=== PATIENT | male | born 1940 | race Caucasian/White ===

== ENCOUNTER 2018-01-16 07:31 | Observation (INO) | payer MEDICARE ==
[~2018-01-16] VITALS: Ht 172.7 cm; Wt 74.1 kg
[~2018-01-16 07:31] MED LIST: AMLODIPINE BESY10 MG PO; BENICAR HCT 401 EAC1 PO; GLIPIZIDE ER5 MG PO; SIMVASTATIN40 MG PO
--- OUTSIDE RECORDS SUMMARY | 2018-01-16 07:33 | XMS REPORT | Clinical Summary ---
Author Author [facility] Organization [facility] Address Unknown Phone Unavailable Care Team Providers Care Alligator Trapper Name Role Phone Gibson Nagy MD PCP Allergies No Known Allergies Medications End Date Status Medication Sig Dispensed Refills Start Date Active albuterol (ACCUNEB) 1.25 U 3 ML VIA 0 mg/3 mL nebulizer NEB TID FOR 8 solution 10 DAYS PRN Active amLODIPine (NORVASC) 10 0 mg tablet 8 Active RESTASIS 0.05 % INT 1 GTT IN 0 ophthalmic emulsion OU BID 8 Active glipiZIDE (GLUCOTROL) 10 0 MG tablet 8 Active ipratropium (ATROVENT) VVN TID 0 0.02 % nebulizer solution 8 Active levoFLOXacin (LEVAQUIN) TK 1 T PO QD 0 500 MG tablet FOR 10 DAYS 8 Active simvastatin (ZOCOR) 20 MG 0 tablet 8 Active predniSONE (DELTASONE) 20 TK 1 T PO QAM 0 mg tablet FOR 5 DAYS 8 Active olmesartan-hydrochlorothi 0 azide (BENICAR HCT) 40-25 8 mg per tablet Active metroNIDAZOLE APPLY BID PRN 3 (METROCREAM) 0.75 % 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 ON 8 FACE Active Problems Not on file Encounters Care Team Description Date Type Specialty Gibson aMbry MD Urinary retention (Primary Dx) 01/10/2018 Emergency Emergency Medicine Niraj Diggs Preoperative clearance (Primary Dx) 01/08/2018 Orders Only Procedural Cardiology Tam John MD Urinary retention (Primary Dx) 12/30/2017 Emergency Emergency Medicine Bassam Lopez MD 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 Never 01/10/2018 How many drinks containing alcohol do you have on Not asked a typical day when you are drinking? How often do you have six or more drinks on one Not asked occasion? Sex Assigned at Date Recorded Not on file Industry Job Start Date Occupation Not on file Not on file Not on file Travel End Travel History Travel Start No recent travel history available. Last Filed Vital Signs Time Taken Vital Sign Reading 01/10/2018 7:16 PM FRAMER Blood Pressure 117/57 01/10/2018 7:16 PM FRAMER Pulse 66 01/10/2018 7:16 PM FRAMER Temperature 36.7 C (98.1 F) 01/10/2018 7:16 PM FRAMER Respiratory Rate 15 01/10/2018 7:16 PM FRAMER Oxygen Saturation 97% - Inhaled Oxygen - Concentration 01/10/2018 6:11 PM FRAMER Weight 77.1 kg (170 lb) 12/30/2017 3:42 AM FRAMER Height 172.7 cm (5' 8") 01/10/2018 6:11 PM FRAMER Body Mass Index 25.85 Plan of Treatment Care Team Description Date Type Specialty Bassam Lopez MD [address] [place] [id number] [phone] 02/21/2018 Pre-Admit Pre-Admission Testing Testing Appointment Bassam Lopez MD [address] [place] [address] [address] [place], [place] [id number] 02/26/2018 [facility] General Surgery Encounter Bassam Lopez MD [address] [place] [address] [address] [place], [place] [address] Cystoscopy, With Turp 02/26/2018 Surgery General Surgery Health Maintenance Due Date Last Done Comments SHINGRIX VACCINE (1 of 2) 1990 ZOSTER VACCINE 2000 PNEUMOCOCCAL 2005 POLYSACCHARIDE VACCINE AGE 65 AND OVER PNEUMOCOCCAL-13 2005 INFLUENZA VACCINE 09/12/2017 Procedures Comments Procedure Name Priority Date/Time Associated Diagnosis ECG 12-LEAD Routine 01/07/2018 Preoperative clearance 4:28 PM FRAMER CHG US, ABDOMEN LIMITED Routine 12/30/2017 4:[address] RENAL STONE PROTOCOL STAT 12/30/2017 4:13 AM FRAMER ESTIMATED GFR STAT 12/30/2017 3:58 AM FRAMER LIPASE LEVEL STAT 12/30/2017 3:58 AM FRAMER COMPREHENSIVE METABOLIC STAT 12/30/2017 PANEL 3:58 AM FRAMER HC COMPLETE BLD COUNT STAT 12/30/2017 W/AUTO DIFF 3:58 AM FRAMER URINALYSIS SCREEN AND STAT 12/30/2017 MICROSCOPY, WITH REFLEX 3:40 AM FRAMER TO CULTURE URINE CULTURE STAT 12/30/2017 3:[address] ABDOMEN PELVIS W Routine 12/06/2017 Hematuria syndrome CONTRAST 2:13 PM CDT ESTIMATED GFR Routine 12/06/2017 1:56 PM CDT POC CREATININE Routine 12/06/2017 1:[address] ABDOMEN PELVIS W Routine 05/10/2017 Hematuria syndrome CONTRAST 8:20 AM CDT POC CREATININE Routine 05/10/2017 7:58 AM CDT after 01/15/2017 Results * ECG 12 lead (01/07/2018 4:28 PM FRAMER) Ventricular rate 71 [facility] Atrial rate 71 [facility] [place] interval 164 [facility] QRSD interval 98 [facility] QT interval 386 [facility] QTC interval 419 [facility] P axis 1 53 [facility] QRS axis 1 15 [facility] T wave axis 39 [facility] EKG impression Normal sinus rhythm-Possible [facility] MUSE Left atrial enlargement-Borderline ECG-In automated comparison with ECG of 13-APR-2016 09:09,-Nonspecific T wave abnormality has replaced inverted T waves in Inferior leads- Narrative Performed At Performing Organization Address City/State/Zipcode Phone Number [facility] MUSE [address] [place] [address] * FAST Ultrasound (12/30/2017 4:38 AM FRAMER) Narrative Performed At Tam John MD 12/31/20178:26 PM FAST Ultrasound Performed by: Tam John MD Authorized by: Tam John MD Procedure details: Technique:Abdominal Abdominal findings: Bladder:Visualized (bladder distension noted) * CT Renal Stone Protocol (12/30/2017 4:13 AM FRAMER) Narrative Performed At CT RENAL STONE PROTOCOL RADIANT CLINICAL INDICATION:Flank painrecurrent stone disease suspected TECHNIQUE: Multidetector CT examination of the abdomen and pelvis performed without intravenous contrast per renal stone protocol. CT imaging was performed with iterative reconstruction technique and/or automated exposure control to reduce radiation dose. COMPARISON:12/06/2017. FINDINGS: Note, the lack of intravenous contrast decreases sensitivity of this exam and limits evaluation of the abdominal and pelvic viscera. URINARY TRACT:There is no urinary tract calculus or hydronephrosis. No suspicious renal mass is identified. LUNG BASES:There are small nodular opacities at the right lung base, likely representing mild pneumonitis. There is mild bibasilar atelectasis. LIVER:Normal. BILIARY:There is cholelithiasis without evidence of acute cholecystitis. There is no abnormal biliary ductal dilation. SPLEEN:Normal. PANCREAS:Normal. ADRENALS:Normal. GI:Large and small bowel are normal in caliber.There are no inflammatory changes.Appendix is visualized and appears normal. There is sigmoid colon diverticulosis. VASCULAR:There is calcified atherosclerotic disease of the abdominal aorta and iliac arteries. The abdominal aorta is normal in caliber. LYMPH NODES:No enlarged lymph nodes in the abdomen or pelvis. PELVIS:The urinary bladder is distended. The prostate gland is mildly large. BONES:No acute osseous abnormality. OTHER:There is no ascites or pneumoperitoneum. IMPRESSION: 1. No urinary tract calculus or hydronephrosis. 2. Distended urinary bladder. If the patient cannot void, consider catheterization. 3. Mild prostatomegaly. 4. Cholelithiasis. [facility]-[id number] Procedure Note Hm Interface, Radiology Results Incoming - 12/30/2017 5:[address] RENAL STONE PROTOCOL CLINICAL INDICATION: Flank pain recurrent stone disease suspected TECHNIQUE: Multidetector CT examination of the abdomen and pelvis performed without intravenous contrast per renal stone protocol. CT imaging was performed with iterative reconstruction technique and/or automated exposure control to reduce radiation dose. COMPARISON: 12/06/2017. FINDINGS: Note, the lack of intravenous contrast decreases sensitivity of this exam and limits evaluation of the abdominal and pelvic viscera. URINARY TRACT: There is no urinary tract calculus or hydronephrosis. No suspicious renal mass is identified. LUNG BASES: There are small nodular opacities at the right lung base, likely representing mild pneumonitis. There is mild bibasilar atelectasis. LIVER: Normal. BILIARY: There is cholelithiasis without evidence of acute cholecystitis. There is no abnormal biliary ductal dilation. SPLEEN: Normal. PANCREAS: Normal. ADRENALS: Normal. GI: Large and small bowel are normal in caliber. There are no inflammatory changes. Appendix is visualized and appears normal. There is sigmoid colon diverticulosis. VASCULAR: There is calcified atherosclerotic disease of the abdominal aorta and iliac arteries. The abdominal aorta is normal in caliber. LYMPH NODES: No enlarged lymph nodes in the abdomen or pelvis. PELVIS: The urinary bladder is distended. The prostate gland is mildly large. BONES: No acute osseous abnormality. OTHER: There is no ascites or pneumoperitoneum. IMPRESSION: 1. No urinary tract calculus or hydronephrosis. 2. Distended urinary bladder. If the patient cannot void, consider catheterization. 3. Mild prostatomegaly. 4. Cholelithiasis. [facility]-[id number] Performing Organization Address City/State/Zipcode Phone Number [facility] [address] [place] [address] * Estimated GFR (12/30/2017 3:58 AM FRAMER) Only the most recent of 2 results within the time period is included. Estimated GFR >=90 mL/min/1.73 m2 [facility] Comment: [facility] CatergoryUnitsInte rpretation G1 >=90 Normal or high G2 60-89Mildly decreased A3a35-35 Mildly to moderately decreased Q0x54-90 Moderately to severely decreased G4 15-29Severely decreased G5 <15Kidney failure The eGFR was calculated using the Chronic Kidney Disease Epidemiology Collaboration (CKD-EPI) equation. Interpretation is based on recommendations of the National Kidney Foundation-Kidney Disease Outcomes Quality Initiative (NKF-KDOQI) published in 2014. Specimen Plasma specimen Performing Organization Address City/State/Zipcode Phone Number [facility] [address] [place] [address] PATHOLOGY AND GENOMIC MEDICINE [place] [address] [place], [place] [id number] [place] [address] * CBC with platelet and differential (12/30/2017 3:58 AM FRAMER) WBC 7.1 4.2 - 11.0 k/uL [facility] RBC 4.53 4.04 - 5.86 m/uL [facility] HGB 14.0 13.0 - 17.3 g/dL [facility] HCT 40.8 34.0 - 45.0 % [facility] MCV 90.1 80.0 - 98.0 fL [facility] MCH 30.9 27.0 - 34.0 pg [facility] MCHC 34.3 31.5 - 36.5 g/dL [facility] RDW - SD 38.4 37.0 - 51.0 fL [facility] MPV 9.7 7.4 - 10.4 fL [facility] Platelet count 179 150 - 400 k/uL [facility] Nucleated RBC 0.00 /100 WBC [facility] Neutrophils 73.7 (H) 36.0 - 66.0 % [facility] Lymphocytes 13.1 (L) 24.0 - 44.0 % [facility] Monocytes 11.4 (H) 0.0 - 6.0 % [facility] Eosinophils 0.1 0.0 - 6.0 % [facility] Basophils 0.3 0.0 - 1.2 % [facility] Immature granulocytes 1.4 (H) 0.0 - 1.0 % [facility] Specimen Blood Performing Organization Address City/[facility] [place] [address] PATHOLOGY AND GENOMIC MEDICINE [address] * Lipase level (12/30/2017 3:58 AM FRAMER) Lipase 19 13 - 60 U/L [facility] Specimen Plasma specimen Performing Organization Address [facility] [place] [address] PATHOLOGY AND [facility] MEDICINE [address] * Comprehensive metabolic panel (12/30/2017 3:58 AM FRAMER) Sodium 135 135 - 150 mEq/L [facility] Potassium 3.3 (L) 3.5 - 5.0 mEq/L [facility] Chloride 95 (L) 98 - 112 mEq/L [facility] CO2 25 24 - 31 mmol/L [facility] Anion gap 15@ANIO 7 - 15 mEq/L [facility] BUN 13 7 - 18 mg/dL [facility] Creatinine 0.60 (L) 0.70 - 1.20 mg/dL [facility] Glucose 139 (H) 65 - 100 mg/dL [facility] Calcium 9.5 8.8 - 10.2 mg/dL [facility] Protein 7.4 6.3 - 8.3 g/dL [facility] Albumin 4.2 3.5 - 5.0 g/dL [facility] A/G ratio 1.3 0.7 - 3.8 [facility] Alkaline phosphatase 56 0 - 129 U/L [facility] AST 22 10 - 50 U/L [facility] ALT 23 5 - 50 U/L [facility] Total bilirubin 0.5 0.2 - 1.2 mg/dL [facility] Specimen Plasma specimen Performing Organization Address City/[facility] Phone Number [facility] DEPARTMENT OF [address] [place] [address] PATHOLOGY AND GENOMIC MEDICINE [facility] [address] * Urinalysis screen and microscopy, with reflex to culture (12/30/2017 3:40 AM FRAMER) Specimen site Clean catch [facility] Color, UA Yellow [facility] Appearance, UA Slightly-Cloudy [facility] Specific gravity, UA 1.010 1.001 - 1.035 [facility] pH, UA 7.0 5.0 - 8.5 [facility] Protein, UA 1+ (A) Negative [facility] Glucose, UA Negative Negative [facility] Ketones, UA Negative Negative [facility] Bilirubin, UA Negative Negative [facility] Blood, UA Large (A) Negative [facility] Nitrite, UA Negative Negative [facility] Urobilinogen, UA Negative <2.0 [facility] Leukocyte esterase, UA Negative Negative [facility] WBC, UA None seen 0 - 1 /HPF [facility] RBC, UA >200 (H) 0 - 5 /HPF [facility] Bacteria, UA None seen None seen [facility] Yeast, UA None seen [facility] Yeast with pseudohyphae, None seen [facility] Specimen Urine Performing Organization Address City/[facility]/Zipcode Phone Number [facility] DEPARTMENT OF [address] [place] [address] PATHOLOGY AND GENOMIC MEDICINE [facility] [address] [place] [address] [facility] * Urine culture (12/30/2017 3:40 AM FRAMER) Urine culture SEE COMMENTComment: JESÚS TAYLOR Bacteriuria screen negative. [facility] Specimen Urine Performing Organization Address City/State/Zipcode Phone Number [facility] DEPARTMENT OF [address] [place] [address] PATHOLOGY AND GENOMIC MEDICINE [facility] [address] [place], [place] [id number] [place] [address] * CT Abdomen Pelvis W Contrast (12/06/2017 2:13 PM CDT) Only the most recent of 2 results within the time period is included. Narrative Performed At EXAMINATION:CT ABDOMEN PELVIS W CONTRAST [facility] CLINICAL HISTORY:R31.9 Hematuriaunspecified, R31.9 TECHNIQUE: Multiple axial images of the abdomen and pelvis were obtained following intravenous administration of iodinated contrast. Sagittal and coronal computerized reformatted images were also obtained. All CT images were acquired using low-dose technique with automated exposure control. COMPARISON: May 10, 2017. FINDINGS: Abdomen: 1.An obstructing renal or ureteral stone is not identified. No hydronephrosis. 2.Bilateral renal cysts. The largest cyst in the right kidney measures 2.3 cm. The largest cyst in the left kidney measures 12 mm. 3.Atherosclerotic changes involving the abdominal aorta. The renal arteries and renal veins are patent bilaterally. The IVC is patent. No retroperitoneal lymphadenopathy. 4.The liver, spleen, pancreas, and adrenal glands appear normal. 5.Cholelithiasis. No intrahepatic or retroperitoneal biliary distention. 6.The portal vein, SMV, and splenic vein are patent. Pelvis: 1.Large and small bowel loops are of normal caliber. The appendix appears normal. There is diverticulosis involving the descending and sigmoid colon without acute inflammatory changes. 2.The prostate gland is slightly prominent measuring 4.7 x 4.6 cm with numerous calcifications. 3.The unenhanced bladder demonstrates questionable, mild wall thickening anteriorly. In the clinical setting of hematuria further evaluation with cystoscopy may be of benefit. IMPRESSION: 1.Thickened appearance to the anterior wall of the bladder. In the clinical setting of hematuria further evaluation with cystoscopy may be of benefit. 2.Slightly enlarged and heterogeneous appearing prostate gland. No pelvic lymphadenopathy. There are several calcifications within the prostate. 3.No suspicious renal masses. Bilateral renal cysts. 4.Cholelithiasis. 5.Diverticulosis. [id number] Procedure Note Interface, Radiology Results Incoming - 12/06/2017 3:16 PM CDT EXAMINATION: CT ABDOMEN PELVIS W CONTRAST CLINICAL HISTORY: R31.9 Hematuria unspecified, R31.9 TECHNIQUE: Multiple axial images of the abdomen and pelvis were obtained following intravenous administration of iodinated contrast. Sagittal and coronal computerized reformatted images were also obtained. All CT images were acquired using low-dose technique with automated exposure control. COMPARISON: May 10, 2017. FINDINGS: Abdomen: 1. An obstructing renal or ureteral stone is not identified. No hydronephrosis. 2. Bilateral renal cysts. The largest cyst in the right kidney measures 2.3 cm. The largest cyst in the left kidney measures 12 mm. 3. Atherosclerotic changes involving the abdominal aorta. The renal arteries and renal veins are patent bilaterally. The IVC is patent. No retroperitoneal lymphadenopathy. 4. The liver, spleen, pancreas, and adrenal glands appear normal. 5. Cholelithiasis. No intrahepatic or retroperitoneal biliary distention. 6. The portal vein, SMV, and splenic vein are patent. Pelvis: 1. Large and small bowel loops are of normal caliber. The appendix appears normal. There is diverticulosis involving the descending and sigmoid colon without acute inflammatory changes. 2. The prostate gland is slightly prominent measuring 4.7 x 4.6 cm with numerous calcifications. 3. The unenhanced bladder demonstrates questionable, mild wall thickening anteriorly. In the clinical setting of hematuria further evaluation with cystoscopy may be of benefit. IMPRESSION: 1. Thickened appearance to the anterior wall of the bladder. In the clinical setting of hematuria further evaluation with cystoscopy may be of benefit. 2. Slightly enlarged and heterogeneous appearing prostate gland. No pelvic lymphadenopathy. There are several calcifications within the prostate. 3. No suspicious renal masses. Bilateral renal cysts. 4. Cholelithiasis. 5. Diverticulosis. [id number] Performing Organization Address City/State/Zipcode Phone Number [facility] [address] [place] [address] * POC creatinine (12/06/2017 1:56 PM CDT) Only the most recent of 2 results within the time period is included. POC creatinine 0.8 0.7 - 1.2 mg/dl [facility] DEPARTMENT OF Comment: PATHOLOGY AND Meter ID: [id number] GENOMIC MEDICINE Machine [employer]er [employer] Laster: Piedad Coles Specimen Blood Performing Organization Address City/State/Zipcode Phone Number [facility] DEPARTMENT OF [address] [place] [address] PATHOLOGY AND GENOMIC MEDICINE after 01/15/2017 Insurance Payer Benefit Subscriber ID Type Phone Address Plan / Group UHC MEDICARE U[employer] xxxxxxxxx HMO CONNECTED (MEDICARE- MEDICAID PLAN) Advance Directives Patient has advance care planning documents on file. For more information, peggy thomas contact: Jesús Taylor [address] [place] [address]
[2018-01-16] MEDS ORDERED: HYDROCORTISONE SOD SUCCINATE 100 MG VIAL ONE (07:55)
[2018-01-16] MEDS ORDERED: HYOSCYAMINE 0.125 MG TAB ONE (07:55)
[2018-01-16] MEDS ORDERED: LEVOFLOXACIN 500MG/D5W 100ML 100 ML IV ONE (07:55)
[2018-01-16] MEDS ORDERED: IOPAMIDOL 610MG/1ML 300 MG/ML VIAL IV ONE (08:26)
[2018-01-16] MEDS ORDERED: FUROSEMIDE INJ 10 MG/ML 4 ML VIAL ONE (11:23)
[2018-01-16] MEDS ORDERED: SODIUM CHLORIDE 0.9% 1000ML 1,000 ML ONE (11:24)
[2018-01-16 11:42] VITALS: BP 132/67
[2018-01-16 11:45] VITALS: BP 132/67
--- OUTSIDE RECORDS SUMMARY | 2018-01-16 11:46 | XMS REPORT | Clinical Summary ---
Author Author [facility] Organization [facility] Address Unknown Phone Unavailable Care Team Providers Care Instructor Creeler Name Role Phone Gibson Nagy MD PCP [...] Care Team Description Date Type Specialty Gibson Mabry MD Urinary retention (Primary Dx) 01/10/2018 Emergency [...] Taken Vital Sign Reading 01/10/2018 7:16 PM PHONE OPERATOR Blood Pressure 117/57 01/10/2018 7:16 PM PHONE OPERATOR Pulse 66 01/10/2018 7:16 PM PHONE OPERATOR Temperature 36.7 C (98.1 F) 01/10/2018 7:16 PM PHONE OPERATOR Respiratory Rate 15 01/10/2018 7:16 PM PHONE OPERATOR Oxygen Saturation 97% - Inhaled Oxygen - Concentration 01/10/2018 6:11 PM PHONE OPERATOR Weight 77.1 kg (170 lb) 12/30/2017 3:42 AM PHONE OPERATOR Height 172.7 cm (5' 8") 01/10/2018 6:11 PM PHONE OPERATOR Body Mass Index 25.85 Plan of Treatment Care Team Description Date Type Specialty Bassam Lopez MD [address] [place] [phone] 02/21/2018 Pre-Admit Pre-Admission Testing Testing Appointment Bassam Lopez MD [address] [place] [address] [address] [place], [place] [address] 02/26/2018 [facility] General Surgery Encounter Bassam Lopez MD [address] [place] [address] [address] [place], [place] [address] Cystoscopy, With Turp 02/26/2018 Surgery General Surgery Health Maintenance Due Date Last Done Comments SHINGRIX VACCINE (1 of 2) 1990 ZOSTER VACCINE 2000 PNEUMOCOCCAL 2005 POLYSACCHARIDE VACCINE AGE 65 AND OVER PNEUMOCOCCAL-13 2005 INFLUENZA VACCINE 09/12/2017 Procedures Comments Procedure Name Priority Date/Time Associated Diagnosis ECG 12-LEAD Routine 01/07/2018 Preoperative clearance 4:28 PM PHONE OPERATOR CHG US, ABDOMEN LIMITED Routine 12/30/2017 4:[address] RENAL STONE PROTOCOL STAT 12/30/2017 4:13 AM PHONE OPERATOR ESTIMATED GFR STAT 12/30/2017 3:58 AM PHONE OPERATOR LIPASE LEVEL STAT 12/30/2017 3:58 AM PHONE OPERATOR COMPREHENSIVE METABOLIC STAT 12/30/2017 PANEL 3:58 AM PHONE OPERATOR HC COMPLETE BLD COUNT STAT 12/30/2017 W/AUTO DIFF 3:58 AM PHONE OPERATOR URINALYSIS SCREEN AND STAT 12/30/2017 MICROSCOPY, WITH REFLEX 3:40 AM PHONE OPERATOR TO CULTURE URINE CULTURE STAT 12/30/2017 3:[address] ABDOMEN PELVIS W Routine 12/06/2017 Hematuria syndrome CONTRAST 2:13 PM CDT ESTIMATED GFR Routine 12/06/2017 1:56 PM CDT POC CREATININE Routine 12/06/2017 1:[address] ABDOMEN PELVIS W Routine 05/10/2017 Hematuria syndrome CONTRAST 8:20 AM CDT POC CREATININE Routine 05/10/2017 7:58 AM CDT after 01/15/2017 Results * ECG 12 lead (01/07/2018 4:28 PM PHONE OPERATOR) Ventricular rate 71 [facility] Atrial rate 71 [facility] RI interval 164 [facility] QRSD interval 98 [facility] QT interval 386 [facility] QTC interval 419 [facility] P axis 1 53 [facility] QRS axis 1 15 [facility] T wave axis 39 [facility] EKG impression Normal sinus rhythm-Possible [facility] MUSE Left atrial enlargement-Borderline ECG-In automated comparison with ECG of 13-APR-2016 09:09,-Nonspecific T wave abnormality has replaced inverted T waves in Inferior leads- Narrative Performed At Performing Organization Address City/State/Zipcode Phone Number [facility] MUSE [address] [place] [address] * FAST Ultrasound (12/30/2017 4:38 AM PHONE OPERATOR) Narrative Performed At Tam John MD 12/31/20178:26 PM FAST Ultrasound Performed by: Tam John MD Authorized by: Tam John MD Procedure details: Technique:Abdominal Abdominal findings: Bladder:Visualized (bladder distension noted) * CT Renal Stone Protocol (12/30/2017 4:13 AM PHONE OPERATOR) Narrative Performed At CT RENAL STONE PROTOCOL [...] consider catheterization. 3. Mild prostatomegaly. 4. Cholelithiasis. [facility]-[id number] Procedure Note Hm Interface, Radiology Results Incoming - 12/30/2017 5:[address] RENAL STONE PROTOCOL CLINICAL INDICATION: Flank [...] consider catheterization. 3. Mild prostatomegaly. 4. Cholelithiasis. [facility]-[id number] Performing Organization Address City/State/Zipcode Phone Number [facility] [address] [place] [address] * Estimated GFR (12/30/2017 3:58 AM PHONE OPERATOR) Only the most recent of 2 results within the time period is included. Estimated GFR >=90 mL/min/1.73 m2 [facility] Comment: [facility] CatergoryUnitsInte rpretation G1 >=90 Normal or high G2 60-89Mildly decreased P3u29-05 Mildly to moderately decreased N2v71-62 Moderately to severely decreased G4 15-29Severely decreased G5 <15Kidney failure The eGFR was calculated using the Chronic Kidney Disease Epidemiology Collaboration (CKD-EPI) equation. Interpretation is based on recommendations of the National Kidney Foundation-Kidney Disease Outcomes Quality Initiative (NKF-KDOQI) published in 2014. Specimen Plasma specimen Performing Organization Address City/State/Zipcode Phone Number [facility] [address] [place] [address] PATHOLOGY AND GENOMIC MEDICINE [place] [address] [place], [place] [id number] [place] [address] * CBC with platelet and differential (12/30/2017 3:58 AM PHONE OPERATOR) WBC 7.1 4.2 - 11.0 k/uL [facility] RBC 4.53 4.04 - 5.86 m/uL [facility] HGB 14.0 13.0 - 17.3 g/dL [facility] HCT 40.8 34.0 - 45.0 % [facility] MCV 90.1 80.0 - 98.[address] [facility] MCH 30.9 27.0 - 34.[address] [facility] MCHC 34.3 31.5 - 36.5 g/dL [facility] RDW - SD 38.4 37.0 - 51.[address] [facility] MPV 9.7 7.4 - 10.[address] [facility] Platelet count 179 150 - 400 k/uL [facility] Nucleated RBC 0.00 /100 WBC [facility] Neutrophils 73.7 (H) 36.0 - 66.0 % [facility] Lymphocytes 13.1 (L) 24.0 - 44.0 % [facility] Monocytes 11.4 (H) 0.0 - 6.0 % [facility] Eosinophils 0.1 0.0 - 6.0 % [facility] Basophils 0.3 0.0 - 1.2 % [facility] Immature granulocytes 1.4 (H) 0.0 - 1.0 % [facility] Specimen Blood Performing Organization Address City/[facility] [place] [address] PATHOLOGY AND GENOMIC MEDICINE [address] * Lipase level (12/30/2017 3:58 AM PHONE OPERATOR) Lipase 19 13 - 60 U/L [facility] Specimen Plasma specimen Performing Organization Address [facility] [place] [address] PATHOLOGY AND [facility] MEDICINE [address] * Comprehensive metabolic panel (12/30/2017 3:58 AM PHONE OPERATOR) Sodium 135 135 - 150 mEq/L [facility] Potassium 3.3 (L) 3.5 - 5.0 mEq/L [facility] Chloride 95 (L) 98 - 112 mEq/L [facility] CO2 25 24 - 31 mmol/L [facility] Anion gap 15@ANIO 7 - 15 mEq/L [facility] BUN 13 7 - 18 mg/dL [facility] Creatinine 0.60 (L) 0.70 - 1.20 mg/dL [facility] Glucose 139 (H) 65 - 100 mg/dL [facility] Calcium 9.5 8.8 - 10.2 mg/dL [facility] Protein 7.4 6.3 - 8.3 g/dL [facility] Albumin 4.2 3.5 - 5.0 g/dL [facility] A/G ratio 1.3 0.7 - 3.[address] [facility] Alkaline phosphatase 56 0 - 129 U/L [facility] AST 22 10 - 50 U/L [facility] ALT 23 5 - 50 U/L [facility] Total bilirubin 0.5 0.2 - 1.2 mg/dL [facility] Specimen Plasma specimen Performing Organization Address City/[facility] Cent[facility] Phone Number [facility] [address] [place] [address] PATHOLOGY AND GENOMIC MEDICINE [facility] [address] * Urinalysis screen and microscopy, with reflex to culture (12/30/2017 3:40 AM PHONE OPERATOR) Specimen site Clean catch [facility] Color, UA Yellow [facility] Appearance, UA Slightly-Cloudy [facility] Specific gravity, UA 1.010 1.001 - 1.[address] [facility] pH, UA 7.0 5.0 - 8.[address] [facility] Protein, UA 1+ (A) Negative [facility] Glucose, UA Negative Negative [facility] Ketones, UA Negative Negative [facility] Bilirubin, UA Negative Negative [facility] Blood, UA Large (A) Negative [facility] Nitrite, UA Negative Negative [facility] Urobilinogen, UA Negative <2.[address] [facility] Leukocyte esterase, UA Negative Negative [facility] WBC, UA None seen 0 - 1 /HPF [facility] RBC, UA >200 (H) 0 - 5 /HPF [facility] Bacteria, UA None seen None seen [facility] Yeast, UA None seen [facility] Yeast with pseudohyphae, None seen [facility] Specimen Urine Performing Organization Address City/[facility]/Zipcode Phone Number [facility] [address] [place] [address] PATHOLOGY AND GENOMIC MEDICINE [facility] [address] [place] [address] [facility] * Urine culture (12/30/2017 3:40 AM PHONE OPERATOR) Urine culture SEE COMMENTComment: JESÚS TAYLOR Bacteriuria screen negative. [facility] Specimen Urine Performing Organization Address City/State/Zipcode Phone Number [facility] DEPART[facility] OF [address] [place] [address] PATHOLOGY AND GENOMIC MEDICINE JES[facility]S CINSEROS [address] [place], [place] [phone] [place] [address] * CT Abdomen Pelvis W Contrast (12/06/2017 [...] renal masses. Bilateral renal cysts. 4.Cholelithiasis. 5.Diverticulosis. [id number] Procedure Note Interface, Radiology Results Incoming - [...] Bilateral renal cysts. 4. Cholelithiasis. 5. Diverticulosis. [id number] Performing Organization Address City/State/Zipcode Phone Number [facility] [address] [place] [address] * POC creatinine (12/06/2017 1:56 PM CDT) Only the most recent of 2 results within the time period is included. POC creatinine 0.8 0.7 - 1.2 mg/dl [facility] Comment: PATHOLOGY AND Meter ID: [id number] GENOMIC MEDICINE Lumber Mover: Piedad Coles Specimen Blood Performing Organization Address City/State/Zipcode Phone Number [facility] [address] [place] [address] PATHOLOGY AND GENOMIC MEDICINE after 01/15/2017 Insurance Payer Benefit Subscriber ID Type Phone Address Plan / Group UHC MEDICARE UHC xxxxxxxxx HMO CONNECTED (MEDICARE- MEDICAID PLAN) Advance Directives Patient has advance care planning documents on file. For more information, peggy thomas contact: Jesús Taylor [phone] [facility] [place] [address]
[2018-01-16] MEDS ORDERED: HYDROMORPHONE 1MG/1ML INJ IV PRN (12:45)
[2018-01-16] MEDS ORDERED: ONDANSETRON HCL INJ 2 MG/ML VIAL IV PRN (12:45)
[2018-01-16] MEDS: SODIUM CHLORIDE 0.9% 1000ML 1,000 ML IV SCH ×3 (13:18→22:39)
[2018-01-16] MEDS: HYDROMORPHONE 2MG/ML 2 MG/ML ML IV PRN ×3 (13:19→22:47)
--- NOTE | 2018-01-16 13:35 | Operative Report ---
DATE OF PROCEDURE: January 16, 2018 PREOPERATIVE DIAGNOSES 1. Adenocarcinoma of the prostate. 2. Urinary retention. 3. Multiple prostatic calcifications. POSTOPERATIVE DIAGNOSES 1. Adenocarcinoma of the prostate. 2. Urinary retention. 3. Multiple prostatic calcifications. OPERATIONS PERFORMED 1. Cystourethroscopy. 2. Holmium laser lithotripsy for all the calcifications in the prostatic fossa. 3. Transurethral resection of the prostate. ANESTHETIC: General. Mr. Coelho is a 77-year-old male who presented with a chief complaint of gross hematuria with urinary retention. Workup showed that he has multiple prostatic fossa calcifications and bladder neck calcification with obstruction. This patient has a history of adenocarcinoma of the prostate and is post TURP laser and post radiation therapy and Lupron several years ago. This patient was placed on the table in the lithotomy position and was prepped and draped in a sterile manner after satisfactory anesthesia. A number 23-Egyptian continuous flow cystoresectoscope was used, and cystourethroscopy was performed and confirmed the previous cystoscopic findings. The Holmium laser lithotripsy was then started and vaporization and fragmenting of all the calcifications at the level of the bladder neck and the prostatic fossa. The urethra was dilated with the [place] sound up to number 28 Egyptian. A number 28-Egyptian resectoscope sheath with the Madhav obturator was then passed through the urethra to the bladder, obturator removed, and the [employer] resectoscope was placed. Lasering of all the prostatic fossa was done and freshening of all the surface was done as much as possibly could although there was small amount of calcification at the floor of the prostatic fossa that could not be removed. At this point I elected to stop because I was concerned if I got any deeper it may perforate the posterior prostatic fossa and the rectal wall, and for that reason I stopped. Hemostasis was obtained all through and was very adequate. The ZummZumm evacuator was then connected to the resectoscope sheath, and evacuation of all the prostatic tissue and the stones was done. A number 22-Egyptian Bright catheter was placed. Patient tolerated the procedure well and was taken to the recovery room in satisfactory condition. Estimated blood loss was 5 to 10 mL. Job#: [id number]
[2018-01-16 13:42] VITALS: BP 132/67
[2018-01-16 16:00] VITALS: BP 125/61
[2018-01-16] MEDS ORDERED: FENTANYL CITRATE/PF 100MCG/2 ML INJ ONE (19:28)
[2018-01-16 20:05] VITALS: BP 129/59
[2018-01-17 00:25] VITALS: BP 122/61
[2018-01-17] MEDS: HYDROMORPHONE 2MG/ML 2 MG/ML ML IV PRN (04:22)
[2018-01-17 04:40] VITALS: BP 138/62
[2018-01-17] MEDS: SODIUM CHLORIDE 0.9% 1000ML 1,000 ML IV SCH ×2 (04:45→06:33)
[2018-01-17 05:21] LABS: BASOPHILS % 0.2 % (0.0-1.0); EOSINOPHILS % 0.1 % (0.0-6.0); HEMATOCRIT 34.6 % (38.2-49.6); MEAN CORPUSCULAR HEMOGLOBIN 31.8 pg (28-32); MEAN CORPUSCULAR HGB CONC 34.7 g/dL (31-35); MEAN CORPUSCULAR VOLUME 91.8 fL (81-99); MONOCYTES # (AUTO) 0.8 (0.2-0.8); NEUTROPHILS # (AUTO) 9.2 (2.1-6.9); NEUTROPHILS % 83.2 % (38.7-80.0); PLATELET COUNT 164 x10e3/uL (140-360); RED BLOOD COUNT 3.77 x10e6/uL (4.3-5.7); RED CELL DISTRIBUTION WIDTH 11.7 % (11.7-14.4)
[2018-01-17 05:50] LABS: ANION GAP 9.7 mmol/L (8-16); BLOOD UREA NITROGEN 17 mg/dL (7-26); BUN/CREATININE RATIO 29 (6-25); CALCIUM 8.8 mg/dL (8.4-10.2); CARBON DIOXIDE 27 mmol/L (22-29); CHLORIDE 105 mmol/L (98-107); CREATININE, SERUM 0.59 mg/dL (0.72-1.25); EST GLOMERULAR FILTRATION RATE > 60 ML/MIN (60-); GLUCOSE 113 mg/dL (74-118); POTASSIUM 3.7 mmol/L (3.5-5.1); SODIUM 138 mmol/L (136-145)
[2018-01-17 08:15] VITALS: BP 138/62
[2018-01-17 08:23] VITALS: BP 140/65
[2018-01-17] MEDS ORDERED: LEVOFLOXACIN 500MG/D5W 100ML 100 ML IV SCH (09:00)
[2018-01-17] MEDS ORDERED: LEVAQUIN500 MG PO (10:45)
[2018-01-17] MEDS ORDERED: ULTRACET TABLE1 EACH PO (10:47)
[2018-01-17] MEDS ORDERED: EPHEDRINE SULFATE INJ 50 MG/10 ML SYR IV ONE (11:23)
[2018-01-17] MEDS ORDERED: ONDANSETRON HCL INJ 2 MG/ML VIAL IV ONE (11:23)
[2018-01-17] MEDS ORDERED: LIDOCAINE HCL 2% LOCAL INJ 5 ML SDV VIAL INJ ONE (11:23)
[2018-01-17] MEDS ORDERED: SEVOFLURANE INHAL SOLN 250 ML PEN BTL INH ONE (11:23)
[2018-01-17] MEDS ORDERED: DEXAMETHASONE SOD PHOS INJ 4 MG/ML VIAL IV ONE (11:23)
[2018-01-17] MEDS ORDERED: PROPOFOL IV EMULSION 10 MG/ML 20 ML VIAL IV ONE (11:23)
[2018-01-17] MEDS ORDERED: KETOROLAC TROMETHAMINE 30 MG/ML VIAL IV ONE (11:23)
== END 2018-01-17 11:24 | disposition home or self-care (01) ==
LOC: OR 07:31 → PACU V 10:56 → IMCU 11:41
PROVIDERS: ADMIT Specialist; ATTEND Specialist
DX: N42.0 Calculus of prostate (principal); N21.0 Calculus in bladder; N32.0 Bladder-neck obstruction; R31.0 Gross hematuria; Z85.46 Personal history of malignant neoplasm of prostate; Z92.3 Personal history of irradiation; I10 Essential (primary) hypertension; E11.9 Type 2 diabetes mellitus without complications; E78.5 Hyperlipidemia, unspecified; Z79.84 Long term (current) use of oral hypoglycemic drugs
CPT/HCPCS: 36415 ×2; 52317; 52648; 80048; 82948 ×2; 85025; 88305; 96361; G0378 ×2; J1100; J1170 ×2; J1720; J1885; J1940; J1956 ×2; J2001; J2405; J2704; J7030 ×2; 96360